=== PATIENT | female | born 1960 | race Caucasian/White ===

== ENCOUNTER 2016-05-20 10:35 | Day surgery (SDC) | payer OTHER ==
[2016-05-20] MEDS ORDERED: LR 1,000 ML IV ONE (11:14)
[2016-05-20] MEDS ORDERED: LIDOCAINE 1% 5 ML SDV ID PRN (11:14)
[2016-05-20] MEDS ORDERED: DEXAMETHASONE 4 MG/ML VIAL ONE (11:24)
[2016-05-20] MEDS ORDERED: LIDOCAINE 2% 5 ML SDV ONE (11:24)
[2016-05-20] MEDS ORDERED: BUPIVACAINE 0.5% 30 ML SDV ONE (11:24)
[2016-05-20] MEDS ORDERED: BACITRACIN 50,000 UNITS/10 ML SYR IRR ONE (11:25)
[2016-05-20] MEDS ORDERED: ROPIVACAINE HCL 20 MG/10 ML INJ EP ONE (11:25)
[2016-05-20] MEDS ORDERED: ceFAZolin 2 GM/DEXTROSE 100 ML IV ONE (11:30)
[2016-05-20] MEDS ORDERED: MIDAZOLAM 2 MG/2 ML VIAL ONE (12:07)
[2016-05-20] MEDS ORDERED: PROPOFOL/EMULSION 500 MG/50 ML BOTTLE IV ONE ×2 (12:16→13:12)
[2016-05-20] MEDS ORDERED: fentaNYL 100 MCG/2 ML INJ ONE ×2 (12:16→12:55)
[2016-05-20] MEDS ORDERED: ceFAZolin 1 GM/5 ML SYR ONE ×2 (12:21→13:11)
[2016-05-20] MEDS ORDERED: BUPIVACAINE 0.25% 30 ML SDV ONE ×2 (12:39→14:36)
[2016-05-20] MEDS ORDERED: LIDOCAINE 1% 30 ML SDV ONE (12:56)
--- NOTE | 2016-05-21 05:21 | GOP ---
[f rep st] OPERATIVE REPORT DATE OF OPERATION: 05/20/2016 SURGEON: Sol Rodriguez DPM SALES PRODUCER: Farida Rodriguez DPM. ANESTHESIA: Light genera MAC ANESTHESIOLOGIST: Anuj Roberto MD. PREOPERATIVE DIAGNOSIS: Hallux rigidus, left foot. POSTOPERATIVE DIAGNOSIS: Hallux rigidus, left foot. PROCEDURE PERFORMED: Patient was brought into the operating room, placed on the operating table in the supine position. Intravenous sedation administered by the anesthesiologist. Posterior tibial a nd peripheral nerve block was obtained utilizing a total of 22 cc of 1-1-1 mix of 0.2% ropivacaine, 0.5% Marcaine plain and 1% lidocaine plain. The lower extremity was prepped and draped in usual courtney rile manner. After the limb was elevated, it was exsanguinated with an Esmarch bandage and ankle to urniquet was inflated to 230 mmHg. Webril padding was utilized under the ankle cuff. Attention was directed toward the dorsal medial aspect of the first metatarsophalangeal joint where a linear incision was created. Incision was carefully deepened with care of neurovascular structure s and clamped and cauterized bleeders. Large loose dorsal osteophyte was noted and resected from th e joint. Additional joint mice were present and removed. Osteophytes resected off the base of the proximal phalanx with a rongeur. Sagittal saw was utilized to remove a large dorsal spur first meta tarsal head. No extensive degeneration of the joint was noted with greater than 70% of the cartilag e absent on the first metatarsal head, and approximately 45% absent on the base of the phalanx. Sag ittal saw was then utilized to resect dorsal base of the phalanx where osteophytes were noted. Woun d was copiously irrigated with bacitracin irrigation solution. K-wire was placed down the shaft of the first metatarsal. Alignment confirmed with C-arm, the metat arsal head was prepped with the paragon reamer system removing cartilage. Then the K-wire was place d down the proximal phalanx, C-arm verifying alignment and positioning and base of the proximal phal anx reamed as well. Bone was noted to be very sclerotic. An additional bone needed to be resected to get to bleeding cortical bone. Wound was copiously irrigated with bacitracin irrigation solution . Joint was further prepped with drill and paragon mallet system. Hallux was placed into position, temporary fixation achieved with K-wire, C-arm utilized throughout the procedure to verify alignmen t and positioning. Various paragon plates were applied, and it appeared that the small 5 degree erika siflexed plate fit the best, along the hallux with some dorsiflexion, which was necessary since the patient stressed the importance of being able to cross-country ski. Position was good in the transv erse plane, care was taken so the hallux would not touch the second toe which was an issue with the right foot post fusion. Compression screw was placed across the fusion site, a 3.0 headless measuri ng 34 mm in length. K-wires had been utilized for temporary stability and alignment to hold the pos ition. Plate was then secured with locking screws, a distal 3.5 locking screw measuring 14 mm in le ngth. Then the proximal nonlocking screw was placed, a 3.5 measuring 18 mm in length. Followed by a 2.7 locking plate distal to the joint measuring 16 mm in length. Then another proximal screw was placed, a 3.0 measuring 20 mm in length. With loading of the forefoot, hallux alignment was satisfa ctory, with adequate amount of dorsiflexion. Wound was copiously irrigated with bacitracin irrigati on solution. Note Anne bone graft was placed within the joint prior to applying hardware. Subcu taneous tissue closed with 2-0 and 3-0 Vicryl. Tourniquet was released and a normal hyperemic respo nse was noted to all digits. 4-0 Monocryl was used for subcutaneous closure, and 4-0 Prolene in a h orizontal interrupted suture manner. Dressings included Xeroform, 4x4s, fluffs reinforced with tape and an Mumtaz bandage. Patient tolerated the procedure and anesthesia well and left the operating david m, vital signs stable and vascular status intact to all digits. In postoperative recovery, the patient was doing well. Her partner will be providing her transporta tion home. She was fitted with a cryo cuff. She is to follow up my office in 2 days for wound chec k. Prognosis good. FINDINGS: INDICATIONS: Several years of pain left big toe joint. Conservative treatment efforts failed to pr ovide her with relief including inserts, stiff-soled shoes, restriction and activities and she has h ad temporarily relief from local cortisone injections, and at this time, has elected to proceed with surgery on the left foot. History of having the right big toe joint fused. She had complications with that foot in the past, where prior procedure was done, failed, infection, and then the joint wa s fused. She has been able to ambulate well. There were no gross restrictions in her activities. She enjoys cross-country skiing. DESCRIPTION OF PROCEDURE: SURGEON: Sol Rodriguez DPM. PROCEDURES PERFORMED: Fusion first metatarsophalangeal joint with screw and plate fixation, left fo ot. /[id number]/MODL
== END 2016-05-20 16:10 | disposition home or self-care (01) ==
LOC: FSGY 10:35
PROVIDERS: ATTEND Podiatrist
DX: M20.22 Hallux rigidus, left foot (principal); M19.072 Primary osteoarthritis, left ankle and foot; M25.775 Osteophyte, left foot; M79.675 Pain in left toe(s); I11.9 Hypertensive heart disease without heart failure; E78.5 Hyperlipidemia, unspecified; Z98.1 Arthrodesis status
CPT/HCPCS: 28289; C1769; C1713; C1762; J0690; J1100; J2250; J2704; J2795; J3010

== ENCOUNTER → 2017-01-16 | Outpatient (CLI) | payer OTHER | LOC: FIMAGING 13:50 | PROVIDERS: ATTEND Internal Medicine | DX: Z12.31 Encounter for screening mammogram for malignant neoplasm of breast (principal); Z80.3 Family history of malignant neoplasm of breast | CPT/HCPCS: G0202 ==

== ENCOUNTER 2017-09-09 12:49 | Emergency (ER) | payer OTHER ==
[2017-09-09] MEDS ORDERED: OXYCODONE/APAP 5/325 TAB PO ONE (13:39)
--- NOTE | 2017-09-09 13:39 | EDPHY ---
General Time Seen by Provider: 09/09/17 13:30 Narrative: CHIEF COMPLAINT: Right knee pain and swelling HISTORY OF PRESENT ILLNESS: Patient presents with complaints of right knee pain and swelling. This originally started a week and half ago while hiking. She noted some moderate swelling in the knee and some pain and stiffness. This improved the course of a few days with rest. On Thursday the pain increased again. The pain is described as deep posterior. 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 This morning she was walking when she felt a sudden increase in pain and felt and heard a popping sensation in the right knee. She describes this as severe intractable. Unable to bear weight. Unable to fully bend or straighten the knee. She has no numbness or tingling distally. No injury to the ipsilateral hip, ankle or foot. She does have left knee total arthroplasty remotely, for which she contacted her orthopedist. She has an appointment tomorrow 1:30 p.m. With PA. No other associated complaints or modifying factors. ESTABLISHED ORTHOPEDIST: Dr. Francois REVIEW OF SYSTEMS: Ten systems reviewed and are negative unless otherwise noted in the HPI PAST MEDICAL HISTORY: Osteoarthritis, microvascular disease, hypertension, melanoma PAST SURGICAL HISTORY: Left knee TKA, right toe fusion SOCIAL HISTORY: Nonsmoker. Lives here independently with her FAMILY HISTORY: Noncontributory EXAMINATION General Appearance: Alert, no distress Cardiovascular: Symmetric radial DP pulses 2+. Symmetric PT pulses 2+. Neurological: A&O, light sensory symmetric in lower extremities. Strength of the great toe symmetric. Unable to test strength of the right knee due to pain. Unable to test patellar reflexes due to pain. Skin: Warm and dry, no rash no petechiae or purpura. Extremities: Mild swelling and tenderness to the right knee over the anterior joint spaces. There is mild tenderness in the popliteal fossa but no fullness. There is no pain of the right calf. No palpable cords. No pain with passive dorsiflexion of the right ankle. No evidence of DVT. Range of motion of the ankles symmetric. Psychiatric: Mood and affect normal DIFFERENTIAL DIAGNOSES: Including but not limited to sprain, strain, fracture, dislocation, Whitaker cyst MDM: 1:45 p.m. Acute right knee pain with popping sensation swelling earlier today. She is neurovascular intact distal to this injury. Unable to fully range the knee due to pain but she does have activation of the extensor tendon at the tibia. She has no pain elsewhere. I have ordered x-ray of the knee and pain medication. 2:20 p.m. X-ray reveals no acute findings per Radiology. I discussed this with the patient. I do feel she warrants a knee immobilizer and crutches as she is nonweightbearing due to pain. She is neurovascular intact distally and I do not feel she warrants any further emergent imaging or laboratory studies. She is in no acute distress. I will provide pain medication for. She has an appointment tomorrow 1:30 with Orthopedics for further care. SUPERVISION: This patient was independently evaluated without direct involvement of or examination by the attending physician. ED Precautions: Worsening pain. Erythema, edema, cyanosis, pallor, paresthesia or anesthesia. - Diagnostics Imaging Results: Imaging Impressions Knee X-Ray 09/09/17 13:39 Impression: Negative. No acute fracture. - History Smoking Status: Never smoked - Objective Vital Signs: Initial Vital Signs Temperature (C) 98.4 F 09/09/17 12:58 Heart Rate 69 09/09/17 12:58 Respiratory Rate 18 09/09/17 12:58 Blood Pressure 137/99 H 09/09/17 12:58 O2 Sat (%) 95 09/09/17 12:58 O2 Delivery Mode Room Air Allergies/Adverse Reactions: bacitracin [Bacitracin] Allergy (Unknown, Verified 05/14/11 21:10) Unknown Home Medications: Medication Instructions Recorded Cholecalciferol Vit D3 [Vitamin D3 4,000 units PO DAILY 05/14/11 (*)] traZODone [traZODONE 50MG (*)] 50 mg PO HS 05/14/11 Atorvastatin Calcium [Lipitor 40 40 mg PO DAILY 04/07/14 mg (*)] Escitalopram Oxalate [Lexapro] 20 mg PO DAILY 04/07/14 Imipramine HCl [Imipramine HCl 25 50 mg PO DAILY 04/07/14 mg (*)] Propranolol HCl [Inderal 20mg (*)] 20 mg PO BID 04/07/14 Estradiol/Norethindrone Acet 1 each TD SUWE 07/29/15 [Combipatch 0.05-0.14 mg Ptch] Lisinopril/Hydrochlorothiazide 1 each PO DAILY 07/29/15 [Zestoretic 20-25 mg Tablet] Psyllium Husk [Psyllium] 1.2 gm PO BID 07/29/15 Tretinoin 1 ramon TP HS 07/29/15 Vit C/Vit E/Lutein/Min/[place]-3 1 each PO DAILY 07/29/15 [Ocuvite Softgel] Felodipine 04/21/16 Ibuprofen 04/21/16 oxyCODONE HCL/ACETAMINOPHEN 1 each PO Q4-6PRN PRN #15 tablet 09/09/17 [Percocet 5-325 mg Tablet] Medications Given: Discontinued Medications Oxycodone/Acetaminophen (Percocet 5/325) 2 tab PO EDNOW ONE Stop: 09/09/17 13:40 Last Admin: 09/09/17 13:45 Dose: 2 tab Departure - Departure Disposition: Home, Routine, Self-Care Clinical Impression: Acute pain of right knee Condition: Good Instructions: Knee Pain (ED) Additional Instructions: 1. Knee immobilizer as needed. You may remove this when her nonweightbearing 2. Crutches as provided as needed 3. Pain medication as prescribed as needed 4. keep your appointment tomorrow 1:30 p.m. With orthopedist 5. ED precautions for worsening pain, numbness, tingling or weakness Referrals: Mary Jane Randolph MD [Primary Care Provider] - As per Instructions Gris Francois PA [Physician X Ray Technician] - As per Instructions Cole Francois MD [Medical Doctor] - As per Instructions Prescriptions: oxyCODONE HCL/ACETAMINOPHEN [Percocet 5-325 mg Tablet] 1 each PO Q4-6PRN PRN # 15 tablet PRN Reason: Pain, Breakthrough
[2017-09-09 15:10] VITALS: BP 128/79
== END 2017-09-09 15:10 | disposition home or self-care (01) ==
DX: M25.561 Pain in right knee (principal); I10 Essential (primary) hypertension
CPT/HCPCS: L1830

== ENCOUNTER → 2017-11-17 | Outpatient (CLI) | payer OTHER | LOC: FIMAGING 14:34 | PROVIDERS: ATTEND Orthopaedic Surgery | DX: Z01.818 Encounter for other preprocedural examination (principal); M17.11 Unilateral primary osteoarthritis, right knee ==

== ENCOUNTER 2017-12-09 09:00 | Observation (INO) | payer OTHER ==
--- NOTE | 2017-12-09 07:56 | PDHPUP ---
History & Physical Update H&P update statement: This history and physical update is based on an assessment of the patient which was completed after admission or registration (within 24 hours), but prior to the surgery/procedure. H&P update: H&P reviewed & patient examined, no change in patient's condition since H&P completed
[~2017-12-09 09:00] MED LIST: ROPIVACAINE 0.2% 80 MG, EPINEPHrine 0.2 MG, KETOROLAC TROMETHAMINE 30 MG in SYRINGE 0 ML IU ONE; TRANEXAMIC ACID 3,000 MG in NS (SYRINGE) 50 ML IRR ONE; TRANEXAMIC ACID 3,000 MG/50 ML BAG IRR ONE; VANCOMYCIN 1 GM VIAL ONE
[2017-12-09] MEDS ORDERED: ACETAMINOPHEN 325 MG TAB PO ONE (13:19)
[2017-12-09] MEDS ORDERED: ceFAZolin 2 GM/DEXTROSE 100 ML IV ONE (13:19)
[2017-12-09] MEDS ORDERED: DEXAMETHASONE 4 MG/ML VIAL IVP ONE (13:19)
[2017-12-09] MEDS ORDERED: FAMOTIDINE 20 MG TAB PO ONE (13:19)
[2017-12-09] MEDS ORDERED: LR 1,000 ML IV ONE (13:20)
[2017-12-09] MEDS ORDERED: LIDOCAINE 1% 2 ML INJ ID PRN (13:20)
[2017-12-09] MEDS ORDERED: MIDAZOLAM 2 MG/2 ML VIAL IVP ONE (14:42)
--- NOTE | 2017-12-09 14:42 | PDANEPAE ---
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 - Pulmonary History Hx COPD: No Hx Asthma/Reactive Airway Disease: No Hx Recent Upper Respiratory Infection: No Hx Oxygen in Use at Home: No Hx Sleep Apnea: No Sleep Apnea Screening Result - Last Documented: Negative - Neurologic History Hx Cerebrovascular Accident: No Hx Seizures: No Hx Dementia: No - Endocrine History Hx Diabetes: No - Renal History Hx Renal Disorders: No - Liver History Hx Hepatic Disorders: No - Neurological & Psychiatric Hx Hx Neurological and Psychiatric Disorders: No - Cancer History Hx Cancer: Yes Cancer History Comment: melanoma and other squamous skin CA - Congenital Disorder History Hx Congenital Disorders: No - GI History Hx Gastrointestinal Disorders: No - Other Health History Other Health History: wears reading glasses - Chronic Pain History Chronic Pain: No - Surgical History Prior Surgeries: Left shoulder impingement repair, 2016. L foot, great toe fusion, 2017. R ft surgery (Lg toe) 2011. left partial knee replacement 2014. lumbar spinal fusion 10/2013. eye surgery x2. L wrist sx ANE Review of Systems Review of Systems: - Exercise capacity METS (RN): 4 METS ANE Patient History - Allergies Allergies/Adverse Reactions: bacitracin [Bacitracin] Allergy (Unknown, Verified 10/22/17 15:11) Rash fluorouracil [From Efudex] Allergy (Verified 10/22/17 15:11) "My tears burn my face" - Home Medications Home Medications: traZODone [traZODONE 50MG (*)] 50 mg PO HS 05/14/11 [Last Taken 11/09/17] Escitalopram Oxalate [Lexapro] 20 mg PO DAILY 04/07/14 [Last Taken 11/25/17] Imipramine HCl [Imipramine HCl 25 mg (*)] 75 mg PO DAILY 04/07/14 [Last Taken ] Propranolol HCl [Inderal 20mg (*)] 20 mg PO BID 04/07/14 [Last Taken 12/08/17] Lisinopril/Hydrochlorothiazide [Zestoretic 20-25 mg Tablet] 1 each PO DAILY 01/31 [Last Taken 12/09/17] Vit C/Vit E/Lutein/Min/[place]-3 [Ocuvite Softgel] 1 each PO DAILY 07/29/15 [Last Taken 11/09/17] Felodipine [Felodipine ER] 10 mg PO HS 04/21/16 [Last Taken 12/08/17] Atorvastatin Calcium [Lipitor 20 mg (*)] 20 mg PO DAILY 10/16/17 [Last Taken 12/03] Herbals/Supplements -Info Only 1 ea PO DAILY 10/16/17 [Last Taken 11/09/17] Multivitamins [Multivitamin (*)] 1 each PO DAILY 10/16/17 [Last Taken 11/09/17] Naproxen Sodium [Aleve 220 MG (*)] 220 mg PO BID PRN 10/16/17 [Last Taken ] [place]-3 Fatty Acids [Fish Oil 1000 mg (*)] 1,000 mg PO DAILY 10/16/17 [Last Taken 11/25/17] - NPO status NPO Status: no food or drink >8 hours NPO Since - Liquids (Date): 12/09/17 NPO Since - Liquids (Time): 11:15 NPO Since - Solids (Date): 12/08/17 NPO Since - Solids (Time): 19:00 - Anes Hx Anes Hx: post operative nausea - Smoking Hx Smoking Status: Never smoked - Alcohol Use Alcohol Use: Rarely - Family Anes Hx Family Anes Hx: none Family Hx Anesthesia Complications: none ANE Labs/Vital Signs - Vital Signs Blood Pressure: 133/90 Heart Rate: 70 Respiratory Rate: 15 O2 Sat (%): 95 Height: 172.72 cm Weight: 92.986 kg ANE Physical Exam - Airway Neck exam: FROM Mallampati Score: Class 2 Mouth exam: normal dental/mouth exam - Pulmonary Pulmonary: no respiratory distress, clear to auscultation - Cardiovascular Cardiovascular: regular rate and rhythym, no murmur, rub, or gallop - ASA Status ASA Status: III ANE Anesthesia Plan Anesthesia Plan: GA with mask, spinal Regional Anesthesia: single shot NB, adductor canal FNB Total IV Anesthesia: Yes
[2017-12-09] MEDS ORDERED: PROPOFOL/EMULSION 500 MG/50 ML BOTTLE IV ONE ×2 (14:59→15:43)
[2017-12-09] MEDS ORDERED: BUPIVACAINE/DEXTROSE 7.5MG/ML 2 ML SPINAL AMP SP ONE (15:01)
[2017-12-09] MEDS ORDERED: ROPIVACAINE HCL 150 MG/30 ML INJ ONE (15:36)
[2017-12-09] MEDS ORDERED: clonIDINE 1 MG/10 ML VIAL EP ONE (15:36)
[2017-12-09] MEDS ORDERED: MAGNESIUM HYDROXIDE 30 ML UDCUP PO PRN (15:38)
[2017-12-09] MEDS ORDERED: BISACODYL 10 MG SUPP PR PRN (15:38)
[2017-12-09] MEDS ORDERED: ONDANSETRON 4 MG/2 ML VIAL IVP PRN ×2 (15:38→16:11)
[2017-12-09] MEDS ORDERED: LACTULOSE 20 GM/30 ML UDCUP PO PRN (15:38)
[2017-12-09] MEDS ORDERED: TEMAZEPAM 15 MG CAP PO PRN (15:38)
[2017-12-09] MEDS ORDERED: PROMETHAZINE HCL 25 MG SUPPR PR PRN (15:38)
[2017-12-09] MEDS ORDERED: DIPHENOXYLATE/ATROPINE LOMOTIL 1 TAB PO PRN (15:38)
[2017-12-09] MEDS ORDERED: CYCLOBENZAPRINE 10 MG TAB PO PRN (15:38)
[2017-12-09] MEDS ORDERED: diphenhydrAMINE 25 MG CAP PO PRN (15:38)
[2017-12-09] MEDS ORDERED: POLYETHYLENE GLYCOL 3350 17 GM PKT PO PRN (15:38)
[2017-12-09] MEDS ORDERED: PROMETHAZINE HCL 25 MG/ML INJ IVP PRN ×2 (15:38→16:11)
[2017-12-09] MEDS ORDERED: ONDANSETRON DISINTEGRATING 4 MG TAB PO PRN (15:38)
[2017-12-09] MEDS ORDERED: METOCLOPRAMIDE 10 MG/2 ML VIAL IVP PRN (15:38)
[2017-12-09] MEDS ORDERED: LR 1,000 ML IV SCH (16:00)
[2017-12-09] MEDS ORDERED: oxyCODONE IR 5 MG TAB PO PRN (16:11)
[2017-12-09] MEDS ORDERED: ACETAMINOPHEN 500 MG TAB PO PRN (16:11)
[2017-12-09] MEDS ORDERED: HYDROmorphONE/DILAUDID 2 MG/ML INJ IVP PRN (16:11)
[2017-12-09] MEDS ORDERED: NALOXONE HCL 0.4 MG/ML INJ IVP PRN (16:11)
[2017-12-09] MEDS ORDERED: fentaNYL 100 MCG/2 ML INJ IVP PRN (16:11)
[2017-12-09] MEDS ORDERED: HYDROCODONE/APAP 5/325 TAB PO PRN (16:11)
--- NOTE | 2017-12-09 16:24 | POSTOPPROG ---
Post Op Note Date of Operation: 12/09/17 Surgeon: Cole Francois Audience Development Manager: Gris Francois PAc Anesthesiologist: Lucita Anesthesia: Spinal Pre-op Diagnosis: R knee DJD Post-op Diagnosis: same Indication: pain Procedure: R med PKA with robot Findings: DJD Inf/Abcess present in the surg proc area at time of surgery?: No EBL: 50-100
--- NOTE | 2017-12-09 16:27 | POSTANESTH ---
Post Anesthetic Evaluation Cardiovascular Status: Normal, Stable, Similar to Pre-Op Cond Respiratory Status: Normal, Stable, Similar to Pre-op Cond. Level of Consciousness/Mental Status: Can Participate in Eval, Alert and Oriented Pain Control: Adequate, Prn Tx Ordered Nausea/Vomiting Control: Adequate, Prn Tx Ordered Complications Possibly Related to Anesthesia: None Noted
[2017-12-09] MEDS: LISINOPRIL/HCTZ 10/12.5 MG 1 EA TAB PO SCH (18:16)
[2017-12-09] MEDS: ACETAMINOPHEN 325 MG TAB PO SCH (18:22)
[2017-12-09] MEDS: SENNOSIDES/DOCUSATE SODIUM TAB PO SCH (19:40)
[2017-12-09] MEDS: oxyCODONE IR 5 MG TAB PO PRN (19:40)
[2017-12-09] MEDS: FAMOTIDINE 20 MG TAB PO SCH (19:40)
[2017-12-09] MEDS: PROPRANOLOL HCL 20 MG TAB PO SCH (19:41)
[2017-12-09] MEDS: ASPIRIN 81 MG CHEWABLE TAB PO SCH (19:41)
[2017-12-09] MEDS ORDERED: FELODIPINE 10 MG PO SCH (21:00)
[2017-12-09] MEDS ORDERED: traZODone 50 MG TAB PO SCH (21:00)
[2017-12-10] MEDS: ACETAMINOPHEN 325 MG TAB PO SCH ×2 (00:36→06:26)
[2017-12-10] MEDS: ceFAZolin 2 GM/DEXTROSE 100 ML IV SCH ×2 (00:38→07:11)
[2017-12-10] MEDS: oxyCODONE IR 5 MG TAB PO PRN (06:25)
[2017-12-10 07:27] VITALS: BP 134/82
[2017-12-10] MEDS: ASPIRIN 81 MG CHEWABLE TAB PO SCH (08:37)
[2017-12-10] MEDS: PROPRANOLOL HCL 20 MG TAB PO SCH (08:38)
[2017-12-10] MEDS: LISINOPRIL/HCTZ 10/12.5 MG 1 EA TAB PO SCH (08:38)
[2017-12-10] MEDS: SENNOSIDES/DOCUSATE SODIUM TAB PO SCH (08:39)
[2017-12-10] MEDS: FAMOTIDINE 20 MG TAB PO SCH (08:39)
--- NOTE | 2017-12-10 08:41 | SOAPPROG ---
SOAP Progress Note Assessment/Plan: Assessment: Patient is doing well POD 1 s/p R med MPL Pain management: pain is well controlled on oral pain meds. VTE ppx: recommend aspirin 81 mg BID for 4 weeks, cont JOEL and SCDs D/c planning: ok for discharge to home once released from PT Plan: 12/10/17 08:40 12/10/17 08:41 Subjective: patient is doing well ,resting comfortably in bed, denies SOB, chest pain and N/ V. Objective: Vital Signs Temp Pulse Resp BP Pulse Ox 36.5 C 86 16 134/82 H 97 12/10/17 07:27 12/10/17 07:27 12/10/17 07:27 12/10/17 07:27 12/10/17 07:27 Laboratory Results 12/10/17 05:05 12/09/17 12/10/17 12/11/17 05:59 05:59 05:59 Intake Total 1690 600 Output Total 900 Balance 790 600 RLE: incision dressing is clean and dry, NVI, +pf/df ICD10 Worksheet Patient Problems: Problems Problem Status Onset Primary localized osteoarthritis of right knee Acute Chest pain Acute Osteoarthritis of knee Acute
[2017-12-10] MEDS ORDERED: IMIPRAMINE HCL 25 MG TAB PO SCH (09:00)
[2017-12-10] MEDS ORDERED: ESCITALOPRAM OXALATE 10 MG TAB PO SCH (09:00)
[2017-12-10] MEDS ORDERED: ATORVASTATIN CALCIUM 20 MG TAB PO SCH (09:00)
--- NOTE | 2017-12-10 10:52 | GOP ---
DATE OF OPERATION: 12/09/2017 SURGEON: Nevin Francois MD BACTERIOLOGIST MEDICAL: MONI Hernandez. ANESTHESIA: Spinal. PREOPERATIVE DIAGNOSIS: Right knee osteoarthritis. POSTOPERATIVE DIAGNOSIS: Right knee osteoarthritis. PROCEDURE PERFORMED: Right medial compartment partial knee replacement with computer navigation and robotic assist. FINDINGS: ESTIMATED BLOOD LOSS: 30 cc. INDICATIONS: This is a 57-year-old female with progressive pain of the right knee unresponsive to co nservative care. Risks and benefits of surgical intervention were explained in detail. DESCRIPTION OF PROCEDURE: The patient was brought to the operating room and placed on the table in s upine position. Spinal anesthesia was induced without difficulty. A pneumatic tourniquet was applie d about the right proximal thigh and the leg was prepped and draped in sterile fashion. Attention wa s turned first to the distal aspect of the right femur. At 3 cm proximal to the lateral rise of the femur, 2 percutaneous half pins were placed for fixation of the femoral array. In a similar fashion, 2 pins were placed anterolateral on the tibia for fixation of the tibial array. External land chiquis ng and registration of the hip center was performed without difficulty. After exsanguination by elevation, the tourniquet was inflated to 250 mmHg. Incision was made from the tibial tuberosity to the superior pole of the patella. Dissection was car ried out through the subcutaneous tissue to the deep fascia using Bovie electrocautery for hemostasis . Medial parapatellar arthrotomy was carried out to the superior pole of the patella. The medial co llateral ligament was elevated and the infrapatellar fat pad was resected. Internal femoral and tibi al registration was carried out without difficulty and the femoral and tibial checkpoints were placed and verified for accuracy. Attention was turned to the femur. The foot print for the size 4 femoral component was cut with the 6 mm bur using the [employer] robotic system and verified for accuracy against the CT based plan. The hole was cut for the femoral post. In a similar fashion, the 6 mm bur was used to cut the foot print for t he size 3 tibial component using the [employer] system and verified for accuracy against the CT based plan. Attention was turned to the posterior aspect of the knee and remnants of the medial meniscus were exc ised. The posterior capsule was injected with ropivacaine, epinephrine and Toradol. Trial reduction was carried out and there was excellent range of motion, alignment and stability using the size 4 fe moral component and the size 3 tibial component, 3 x 8 mm polyethylene. All trials were then removed. The joint was thoroughly irrigated and carefully dried. One package o f cement and 1 gram of vancomycin were mixed in the vacuum mixer and placed on the fixation surfaces of all components. The components were implanted and all excess cement was thoroughly removed. Impla nt placement was verified against the CT view plan and found to be excellent. The tourniquet was deflated and all bleeders were coagulated. The wound was thoroughly irrigated and closed using interrupted sutures of 2-0 Vicryl for the joint capsule. The subcu was closed with 3-0 Vicryl and the skin with 4-0 Monocryl. Dermabond and Steri-Strips were applied, followed by a compr essive dressing. The patient was then moved from the operating room to the recovery room in good con dition, having tolerated the procedure well. CASE CLASSIFICATION: Clean. /[id number]/MODL
--- NOTE | 2017-12-10 16:08 | ASMTLACE ---
LACE Length of stay for Answers: 2 days current admission Acuity / Level of Answers: No Care: Did the patient have an inpatient admission? Comorbidities - select Answers: Other Notes: HTN all that apply # of Emergency department Answers: 1-2 visits in the last 6 months Score: 4 Date Signed: 12/10/2017 04:08 PM Electronically Signed By:ASHLY Leary
== END 2017-12-10 09:59 | disposition home or self-care (01) ==
LOC: F3N 13:05
PROVIDERS: ADMIT Orthopaedic Surgery; ATTEND Orthopaedic Surgery
DX: M17.11 Unilateral primary osteoarthritis, right knee (principal); I25.10 Atherosclerotic heart disease of native coronary artery without angina pectoris
CPT/HCPCS: 27446; 73560; 97161; G0378; C1713; J0171; J0690; J0735; J1100; J1885; J2250; J2704; J2795; J3370

== ENCOUNTER → 2018-01-21 | Outpatient (CLI) | payer OTHER | LOC: FIMAGING 14:15 | PROVIDERS: ATTEND Internal Medicine | DX: Z12.31 Encounter for screening mammogram for malignant neoplasm of breast (principal); Z80.3 Family history of malignant neoplasm of breast ==